=== PATIENT | female | born 1980 | race Caucasian/White ===

== ENCOUNTER → 2018-01-11 | Outpatient (CLI) | payer OTHER | END | disposition home or self-care (01) | LOC: C.LABSPEC 14:18 | PROVIDERS: ATTEND Obstetrics & Gynecology | DX: O09.523 Supervision of elderly multigravida, third trimester (principal); Z3A.00 Weeks of gestation of pregnancy not specified ==

== ENCOUNTER → 2018-01-18 | Outpatient (CLI) | payer OTHER ==
[2018-01-18 15:40] LABS: HEMATOCRIT 34.4 % (37-47); HEMOGLOBIN 11.7 g/dL (12.0-16.0)
== END | disposition home or self-care (01) ==
LOC: C.LAB1850 13:30
PROVIDERS: ATTEND Obstetrics & Gynecology
DX: O09.523 Supervision of elderly multigravida, third trimester (principal)

== ENCOUNTER → 2018-03-01 | Outpatient (CLI) | payer OTHER ==
[~2018-03-01] MED LIST: PRENTAB26 PO
== END | disposition home or self-care (01) ==
LOC: C.LABSPEC 13:31
PROVIDERS: ATTEND Obstetrics & Gynecology
DX: O09.523 Supervision of elderly multigravida, third trimester (principal)

== ENCOUNTER 2018-03-16 07:26 | Inpatient (IN) | payer OTHER ==
[~2018-03-16] VITALS: Ht 154.9 cm; Wt 75.9 kg
[2018-03-16] MEDS ORDERED: LACTATED RINGER'S 1000ML 1,000 ML IV PRN (07:43)
[2018-03-16] MEDS ORDERED: LACTATED RINGER'S 1000ML 1,000 ML IV SCH (07:43)
[2018-03-16 08:15] LABS: HEMATOCRIT 37.1 % (37-47); HEMOGLOBIN 12.6 g/dL (12.0-16.0); MEAN CELL VOLUME 86.7 fL (80-100); MEAN CORPUSCULAR HEMOGLOBIN 29.4 pg (25-34); MEAN PLATELET VOLUME 9.6 fL (7.4-10.4); PLATELET COUNT 262 K/uL (130-400); RED CELL DISTRIBUTION WIDTH SD 46.8 fL (36.4-46.3); WHITE BLOOD COUNT 14.12 K/uL (4.8-10.8)
[2018-03-16] MEDS ORDERED: BUPIVACAINE 0.25% 30 ML VIAL ONE (08:41)
[2018-03-16] MEDS ORDERED: EpHEDrine SULFATE INJ 50 MG/ML AMP ONE (08:42)
[2018-03-16] MEDS ORDERED: FENTANYL CITRATE INJ 50 MCG/1 ML 2 ML VIAL ONE (08:42)
[2018-03-16] MEDS ORDERED: FENTANYL 2MCG/ML ROPIV 1.25MG/ML 100ML BAG ONE (08:43)
[2018-03-16] MEDS ORDERED: LACTATED RINGER'S 1000ML 500 ML IV PRN ×2 (09:38→14:28)
[2018-03-16] MEDS ORDERED: NALOXONE HCL INJ 1 MG in SODIUM CHLORIDE 0.9% 1000ML 1,000 ML IV PRN (09:38)
[2018-03-16] MEDS ORDERED: EpHEDrine SULFATE INJ 50 MG/ML AMP IV PRN (09:45)
[2018-03-16] MEDS ORDERED: NALOXONE HCL INJ 0.4 MG/1 ML VIAL/CARP IV PRN (09:45)
[2018-03-16] MEDS ORDERED: NALBUPHINE HCL INJ 10 MG/ML AMP IV PRN (09:45)
[2018-03-16] MEDS ORDERED: DiphenhydrAMINE HCL 50 MG/ML VIAL IV PRN (09:45)
[2018-03-16] MEDS ORDERED: ONDANSETRON INJ 2 MG/ML 2 ML VIAL IV PRN (09:45)
[2018-03-16 10:54] VITALS: Ht 154.9 cm; Wt 75.9 kg
[2018-03-16] MEDS ORDERED: OXYTOCIN 30 UNITS/500ML NSS IV PRN ×2 (14:30→20:00)
[2018-03-16] MEDS: FENTANYL 2MCG/ML ROPIV 1.25MG/ML 100ML BAG EPI PRN ×2 (14:59→17:29)
[2018-03-16] MEDS ORDERED: OXYCODONE/ACETAMINOPHEN 5-325 TAB PO PRN (20:00)
[2018-03-16] MEDS ORDERED: LANOLIN OINT EXT PRN (20:00)
[2018-03-16] MEDS ORDERED: SUPERCREAM 0.870 % 15GM JAR EXT PRN (20:00)
[2018-03-16] MEDS ORDERED: ACETAMINOPHEN 325 MG TAB PO PRN (20:00)
[2018-03-16] MEDS ORDERED: BENZOCAINE 20% AER SPR 82.5 GM CAN EXT PRN (20:00)
[2018-03-16] MEDS ORDERED: HYDROCORTISONE ACETATE 25 MG SUPP PR PRN (20:00)
--- NOTE | 2018-03-16 20:05 | Anesthesia Procedure Note ---
Anesthesia Epidural Removal Nt Date & Time March 16, 2018 at 20:05 Vital Signs Pain Intensity: 0.0 Notes Mental Status: alert / awake / arousable, participated in evaluation Nausea / Vomiting: adequately controlled Pain: adequately controlled Airway Patency, RR, SpO2: stable & adequate BP & HR: stable & adequate Hydration State: stable & adequate Neuraxial Anesthesia: was administered Anesthetic Complications: no major complications apparent, pt satisfied with anesthetic care Epidural: removed without complications, with tip intact
[2018-03-16] MEDS: IBUPROFEN 600 MG TAB PO PRN (20:16)
[2018-03-16] MEDS: DOCUSATE SODIUM 100 MG CAP PO SCH (20:16)
[2018-03-16 21:00] VITALS: BP 120/73; PULSE 96; TEMP 36.7
--- NOTE | 2018-03-16 22:13 | Vaginal Delivery Summary ---
Vaginal Delivery Summary Predelivery diagnoses: 1. 37-year-old 001 at 38 weeks 5 days 2. Spontaneous labor 3. Advanced maternal age Postdelivery diagnoses: Same Procedure: Spontaneous vaginal delivery Complications: None Assessment a blood loss: 300 mL Findings: Viable male , Apgars 9 and 9. Weight pending, please see nursery records. Description of delivery: The patient progressed to complete with epidural anesthesia. She labored down and then began to push. She spontaneously vaginally delivered a viable male patient. Nuchal cord 1 was noted, easily reduced. The head was delivered, followed by the anterior shoulder followed by the posterior shoulder followed by the body. The baby is placed on mother's abdomen, and a spontaneous cry was heard. The umbilical cord was both wrapped around baby's body as well as the baby's foot. Cord blood was obtained, the placenta was delivered spontaneously intact with three-vessel cord. Pitocin was given. The uterus began to become firm. The uterus and vagina were swabbed of all clots and debris. The cervix vagina and perineum were inspected and a very superficial abrasion was noted at the perineum, this was hemostatic and did not require repair. Excellent hemostasis was observed, the patient and the baby tolerated the delivery well. They are recovering in the room in stable and good condition. At the conclusion of the delivery, sponge and instrument counts were correct 2.
[2018-03-17 00:05] VITALS: BP 108/63; PULSE 80; TEMP 36.8
[2018-03-17] MEDS: IBUPROFEN 600 MG TAB PO PRN ×4 (00:13→19:38)
[2018-03-17 04:30] VITALS: BP 108/65; PULSE 76; TEMP 36.8
--- NOTE | 2018-03-17 06:41 | Progress Note ---
Subjective March 17, 2018. Subjective conversation w/ patient Ambulation: ambulating normally Voiding: no voiding problems Diet Tolerance: Regular Diet Lochia: Moderate Feeding Type: Breast Feeding Pain: Abdominal cramps noted, improved with analgesia Review of Systems Constitutional: No fever, No chills Respiratory: No shortness of breath Cardiac: No chest pain Abdomen: No nausea, No vomiting Objective Vital Signs Date Time Temp Pulse Resp B/P (MAP) Pulse Ox O2 Delivery O2 Flow Rate FiO2 03/17/18 04:30 36.8 76 16 108/65 03/17/18 00:05 36.8 80 16 108/63 03/17/18 00:05 Room Air 03/16/18 21:00 Room Air 03/16/18 21:00 36.7 96 120/73 Physical Exam General Appearance: WELL-APPEARING, WD/WN, NO APPARENT DISTRESS Respiratory/Chest: lungs clear, normal breath sounds Cardiovascular: regular rate, rhythm Abdomen: soft Fundus: Firm, Non-Tender, Relation to Umbilicus (1 below) Extremities: no pedal edema, no calf tenderness Laboratory Results Last 24 Hours Test 03/16/18 08:02 03/17/18 04:44 White Blood Count 14.12 K/uL Red Blood Count 4.28 M/uL Hemoglobin 12.6 g/dL Hematocrit 37.1 % Mean Corpuscular Volume 86.7 fL Mean Corpuscular Hemoglobin 29.4 pg Mean Corpuscular Hemoglobin Concent 34.0 g/dl RDW Standard Deviation 46.8 fL RDW Coefficient of Variation 15.0 % Platelet Count 262 K/uL Mean Platelet Volume 9.6 fL Assessment and Plan Problem List Medical Problems: (1) Bronchitis Status: Acute Post- Day#: 1 Continue Routine Care: 37F s/p NVD day 1 - O+, Rubella Immune, GBS -ve - pt doing very well clinically - Vital signs reviewed and WNL - routine care - monitor and control pain with Motrin PRN - Encourage breast feeding Resident Physician Supervision Note: I was present with Dr. Escobar during the history and exam. I discussed the case with the resident and agree with the findings and plan as documented in the note. Any exceptions or clarifications are listed here: PPD#1 doing well. Routine care. Documented By: Cheyanne Knott Resident Tracking Resident Involvement: Resident Care Provided Care Provided: OB Delivery
--- NOTE | 2018-03-17 06:42 | Discharge Instructions ---
Discharge Instructions Date of Service March 17, 2018. Admission Reason for Admission: Check Labor Discharge Discharge Diagnosis / Problem: Vaginal Delivery Discharge Goals Goal(s): Routine recovery after delivery Medications Continue Dispensed Medications: supercream, dermaplast, tucks, lansinoh Activity Recommendations Activity Limitations: per Instructions/Follow-up section . Instructions / Follow-Up Instructions / Follow-Up ACTIVITY RECOMMENDATIONS: * Gradual return to full activity over the next 2-3 weeks. * No lifting - nothing heavier than baby over the next 2-3 weeks. * Do not engage in vigorous exercise, sexual activity or sports until cleared by your physician. * Do not drive or operate any motorized equipment until cleared by your physician. * You may shower/bathe daily. MEDICATIONS: For discomfort or pain, you may use Acetaminophen (Tylenol), Ibuprofen (Advil), or Naproxen (Aleve) following the package directions. For constipation you may use Colace following the package directions. BREAST CARE: If you are not breast feeding: * Wear a supportive bra 24 hours a day for one to two weeks. * Avoid stimulating your breasts and nipples as much as possible during the first few weeks after delivery. * When taking a shower, have the warm water hit your back, not breasts. * When your breasts feel full, apply ice packs. Usually three to four times a day helps ease the discomfort. * Take a mild pain medication (Tylenol / Motrin) when you are uncomfortable. If breast feeding: * Use breast milk to lubricate nipples. Lansinoh cream may be used for sore nipples. You do not need to remove cream prior to breast feeding. If using a different brand of cream, check the label for directions regarding removal of cream prior to nursing. * Wear a supportive bra. * If having problems with breasts or breast feeding, call a golf tournament consultant or your health care provider. EPISIOTOMY CARE: After delivery, if you have an episiotomy (stitches), the following steps will ease discomfort and aid healing. * For the first 24 hours after delivery, place ice packs next to your episiotomy to help reduce swelling. * After the first 24 hour-period, sitz baths, either portable or in the tub, are suggested. A shower with a shower arm sprayed over the episiotomy may be comforting. * Nichole care should be done after each voiding and bowel movement. Squirt warm water from a plastic bottle over the perineum (region of the body between the anus and urinary opening) and pat dry. * Use Dermoplast to ease discomfort. Shake container. [place] directly over the episiotomy. Place a Tucks on a clean sanitary pad next to your episiotomy. SPECIAL CARE INSTRUCTIONS: When you are discharged from the hospital, it is important for you to follow the instructions listed below: * During the first week at home, you should be able to care for yourself and your baby. In addition, the usual light household activities are encouraged. * Limit your activities to the way you feel. Do not try to clean the house or move furniture. Be sensible. * If you actively engage in sports and have done so up until the time of your delivery, you may resume these activities as soon as you feel able. This may take up to one month or even longer. Use good judgment. * Continue to take your vitamins for at least six weeks after the of your baby. * Your diet need not be limited unless you were on a special diet before your delivery. Breast-feeding mothers need around 2500 calories per day and at least 64-80 ounces of fluid per day (8 to 10 glasses). * You should eat foods from the four major food groups. Crash diets or fad diets are to be avoided. Eating lean meats, fresh fruits and vegetables, low-fat dairy products, high fiber foods and a regular exercise program, will help you get back to your pre- weight without putting your health at risk. * Constipation is sometimes a problem after delivery. Take a mild laxative as needed. If breast feeding, Milk of Magnesia is acceptable to use. You may use a suppository or Fleets enema if no episiotomy. * A daily shower or tub bath is suggested. Be sure to thoroughly and gently dry the perineum. * A bloody vaginal discharge will usually continue until around four weeks post . A small amount of bleeding may continue for as long as six weeks. Vaginal discharge changes from the bright red bleeding after delivery to pink then brownish and finally yellowish-pink before becoming white and disappearing. * Bleeding may increase with activity. Your first period may come in 4-8 weeks. If you are breast feeding, your period may be delayed even longer. * [place] (sex) can begin whenever both you and your partner feel comfortable and do not have any form of genital infection. It is recommended that you wait at least six weeks for internal and external healing to occur. If you have questions, please talk to your health care practitioner. A condom should be used to prevent infection and . * Foreplay, gentle intercourse and lubrication is very important the first several times to prevent pain. A water-based lubricant such as K-Y jelly or Astroglide may be used. * If you have RH negative blood and your baby is RH positive, you will receive RHOGAM by injection prior to discharge. The nurse will give you a card to keep with you that has the date and place that you received RHOGAM after delivery. * During your care, you had a Rubella screen done to check for the presence of rubella antibodies in your blood. If your test was negative, you will receive a Rubella vaccine prior to discharge. This vaccine may cause a fever, soreness at the injection site and flu-like symptoms. If these symptoms persist, notify your health care practitioner. is not advised for one month after a Rubella vaccine. * Verbalizes understanding of car seat law as reviewed with patient nursing. * Car Seat hand-out given and reviewed with patient by nursing. * Shaken baby information reviewed with patient by nursing. Call you doctor if: * Heavy bleeding (saturating several pads an hour) or passing clots the size of your fist. * A fever >101 degrees F (38.3 degrees C) on two occasions four hours apart and /or chills. * Unusual pain in the pelvic or vaginal areas. * "Baby Blues" lasting longer than two weeks. If you have any questions or concerns, call your health care practitioner at . FOLLOW UP VISIT: * Please call the office at to schedule a 6 week examination. It is important you keep this appointment. It is important for you to make arrangements for either yearly or twice yearly check-ups thereafter. Current Hospital Diet Patient's current hospital diet: Regular OB Diet Discharge Diet Recommended Diet: Regular Diet Pending Studies Studies pending at discharge: no Medical Emergencies . Who to Call and When: Medical Emergencies: If at any time you feel your situation is an emergency, please call 911 immediately. . Non-Emergent Contact Non-Emergency issues call your: Primary Care Provider . . "Provider Documentation" section prepared by Jose Escobar. .
[2018-03-17 07:24] LABS: HEMATOCRIT 32.1 % (37-47); HEMOGLOBIN 10.9 g/dL (12.0-16.0)
[2018-03-17 08:15] VITALS: BP 113/65; PULSE 73; TEMP 36.7
[2018-03-17] MEDS: DOCUSATE SODIUM 100 MG CAP PO SCH ×2 (10:27→19:42)
[2018-03-17 11:00] VITALS: BP 113/70; PULSE 73; TEMP 36.8
[2018-03-17 15:25] VITALS: BP 111/66; PULSE 86; TEMP 36.9
[2018-03-17] MEDS ORDERED: BISACODYL 5 MG TABEC PO SCH (20:00)
[2018-03-17 23:40] VITALS: BP 107/63; PULSE 71; TEMP 36.8; O2SAT 98
--- NOTE | 2018-03-18 06:32 | Progress Note ---
Subjective March 18, 2018. Subjective conversation w/ patient Ambulation: ambulating normally Voiding: no voiding problems Diet Tolerance: Regular Diet Lochia: Small Feeding Type: Breast Feeding Pain: Mild cramping with movement. Improved with analgesia Review of Systems Constitutional: No fever, No chills Respiratory: No shortness of breath Cardiac: No chest pain Abdomen: No nausea, No vomiting Objective Vital Signs Date Time Temp Pulse Resp B/P (MAP) Pulse Ox O2 Delivery O2 Flow Rate FiO2 03/17/18 23:40 36.8 71 16 107/63 03/17/18 23:40 98 Room Air 03/17/18 15:25 Room Air 03/17/18 15:25 36.9 86 18 111/66 03/17/18 11:00 36.8 73 16 113/70 03/17/18 08:15 36.7 73 18 113/65 03/17/18 08:15 Room Air Physical Exam General Appearance: WELL-APPEARING, WD/WN, NO APPARENT DISTRESS Respiratory/Chest: lungs clear, normal breath sounds Cardiovascular: regular rate, rhythm Abdomen: soft Fundus: Firm, Non-Tender, Relation to Umbilicus (at u) Extremities: no pedal edema, no calf tenderness Laboratory Results Last 24 Hours Test 03/17/18 07:15 Hemoglobin 10.9 g/dL Hematocrit 32.1 % Assessment and Plan Problem List Medical Problems: (1) Bronchitis Status: Acute Post- Day#: 2 Continue Routine Care: 37F s/p NVD day 2 - O+, Rubella Immune, GBS -ve - pt doing very well clinically - Vital signs reviewed and WNL - routine care - monitor and control pain with Motrin PRN - Encourage breast feeding - pt ready for d/c today, d/c instructions reviewed. f/u in 6 weeks in office Resident Physician Supervision Note: I interviewed and examined the patient. Discussed with Dr. Escobar and agree with findings and plan as documented in the note. Any exceptions or clarifications are listed here: Doing well. Plan d/c. Instructions given. Documented By: Tricia Lund Resident Tracking Resident Involvement: Resident Care Provided Care Provided: OB Delivery
[2018-03-18] MEDS: DOCUSATE SODIUM 100 MG CAP PO SCH (08:00)
[2018-03-18 08:30] VITALS: BP 124/79; PULSE 76; TEMP 36.7
[2018-03-18] MEDS: IBUPROFEN 600 MG TAB PO PRN (12:05)
[2018-03-18 14:10] VITALS: BP_DIAS 79; PULSE 76; TEMP 36.7
== END 2018-03-18 14:10 | disposition home or self-care (01) | DRG 775 ==
LOC: C.LD 07:26 → C.OPB 07:26 → C.LD 07:50 → C.OBG 20:57 → EDSTATUS 03-25 07:24
PROVIDERS: ADMIT Obstetrics & Gynecology; ATTEND Obstetrics & Gynecology
PROC: 10E0XZZ Delivery of Products of Conception, External Approach (ICD-10-PCS; principal; 2018-03-16)
DX: O99.334 Smoking (tobacco) complicating childbirth (principal); O09.523 Supervision of elderly multigravida, third trimester; O69.81X0 Labor and delivery complicated by cord around neck, without compression, not applicable or unspecified; Z3A.38 38 weeks gestation of pregnancy; Z37.0 Single live birth; F17.200 Nicotine dependence, unspecified, uncomplicated

== ENCOUNTER 2019-11-28 16:39 | Inpatient (IN) ==
[2019-11-28] MEDS ORDERED: OXYTOCIN 30 UNITS/500 ML BAG IV PRN ×3 (17:35→21:49)
--- NOTE | 2019-11-28 17:39 | History & Physical Report ---
Date of Service November 28, 2019 Assessment & Plan (1) Supervision of elderly multigravida: Admit to L&D. Labs, IV access, FHT/Kieler. She eventually would like an epidural. She is ok to ambulate. Anticipate . History of Present Illness Chief Complaint: contractions Primary Care Provider: NO PCP 38yo @ 40 0/7 presents with contractions. No vaginal bleeding, leaking of fluid. + movement. Membranes stripped in office yesterday. complicated by advanced maternal age. Allergies Allergy/AdvReac Type Severity Reaction Status Date / Time No Known Allergies Allergy Unknown Verified 11/28/19 16:48 Home Medications Home Medications Medication Instructions Recorded Confirmed Type prenat.vits,marco a,udx-gogf-qcvgx 1 tab PO DAILY 07/13/19 11/28/19 History Patient History Social History (Updated 06/05/19 @ 11:07 by Jerica Rosa) Preferred Language: Mongolian Communication Ability: Effective Beliefs That Will Affect Care: None marital status: Single Current Living Situation: Significant Other Other Information That Helps Us Care for You: No Feels Safe at Home: Yes Safety Concerns: Feels Safe At This Time Smoking Status: Current every day smoker Tobacco Type: cigarettes ; Cigarettes Per Day: 10 ; Tobacco Cessation Education Requested by Patient: No Hx Alcohol Use: No Hx Substance Use: No Review of Systems All systems reviewed & are unremarkable except as noted in HPI & below Physical Exam Physical Exam: FHT Cat 1 Kieler Q 8 minutes SVE: 4/100/-1 (was 2cm in office yesterday) Constitutional: WD/WN, vitals as above Respiratory: normal respiratory effort, lungs clear to auscultation no respiratory distress Cardiovascular: Rate/Rhythm: regular rate and regular rhythm Gastrointestinal (Abdomen): Inspection/Auscultation: abdomen normal to inspection Percussion/Palpation: abdomen soft; abdomen nontender Gravid. No s/s chorio or abruption. Skin: no rashes, warm and dry Psychiatric: A+Ox3, euthymic affect Results & Data Vital Signs (Past 12 Hours) Vital Signs Temp Resp 11/28/19 17:03 37.0 C 18 Coding Level of Care Code None Diagnoses Supervision of elderly multigravida O09.529
[2019-11-28 17:57] LABS: Hemoglobin 12.5 g/dL (12.0-16.0); Mean Corpuscular Hemoglobin 30.4 pg (25-34); Mean Platelet Volume 10.2 fL (7.4-10.4); Platelet Count 239 K/uL (130-400); RDW Coefficient of Variation 14.8 % (11.5-14.5); RDW Standard Deviation 48.6 fL (36.4-46.3); Red Blood Count 4.11 M/uL (4.2-5.4)
[2019-11-28] MEDS: LACTATED RINGER'S 1,000 ML IV PRN ×2 (18:10→19:15)
[2019-11-28] MEDS ORDERED: BUPIVACAINE 0.25% 30 ML VIAL ONE (18:24)
[2019-11-28] MEDS ORDERED: ePHEDrine sulfate 50 MG/ML AMP ONE (18:24)
[2019-11-28] MEDS ORDERED: fentaNYL citrate 100 MCG/2 ML VIAL ONE (18:24)
[2019-11-28] MEDS ORDERED: fentaNYL 2MCG/ML ROPIV 1.25MG/ML 100 ML BAG EPI ONE (18:25)
--- NOTE | 2019-11-28 18:42 | Anesthesiology Consultation ---
Date of Service November 28, 2019 Assessment & Plan Chart Review Chart Review: Acceptable Risk for Surgery, Patient NOT seen in Pre Admission Testing and Acceptable Risk for Labor Epidural Consults Requested none ASA ASA2 Proposed Anesthesia Anesthesia Type: Labor Epidural Risk / Benefits Reviewed With: PT / POA / Parent / Guardian, Accepts Plan and I nformed Consent Obtained History Height/Weight Height: 5 ft 1.5 in Weight: 78.018 kg Allergies Allergy/AdvReac Type Severity Reaction Status Date / Time No Known Allergies Allergy Unknown Verified 11/28/19 16:48 Medications Home Medications Medication Instructions Recorded Confirmed Last Taken prenat.vits,marco a,jhy-jsyk-vvuga 1 tab PO DAILY 07/13/19 11/28/19 Unknown Active Medications Generic Name Dose Route Start Last Admin Trade Name Freq PRN Reason Stop Dose Admin Lactated Ringer's 1,000 mls @ 125 mls/hr 11/28/19 17:35 11/28/19 18:10 Lr IV 11/30/19 17:34 999 mls/hr .Q8H PRN Administration L&D Protocol Protocol NPO Date Last Intake of Fluids: 11/28/19 Time Last Intake of Fluids: 17:00 Date Last Intake of Solids: 11/28/19 Time Last Intake of Solids: 13:00 Past Medical History Medical History Acute bronchitis (Resolved) Chicken pox IUD complication Exercise / Class Metabolic Activity II 4-5 Yardwork/Stairs/Walk up hill Past Family History Family History Father Hypertension Past Surgical History Surgical History History of oral surgery Past Anesthesia History No Hx of Anesthesia Complications and No Family Hx of Anesthesia Complications History of PONV No Hx of PONV and No Hx of Motion Sickness Social History Smoking Status: Current every day smoker tobacco type: cigarettes Smoking cigarettes per day: 10 Hx Alcohol Use: No Hx Substance Use: No Physical Exam Vital Signs Last Vital Signs Temp 37.0 C 11/28/19 17:03 Pulse 90 11/28/19 18:38 Resp 18 11/28/19 17:03 BP 137/57 L 01/28/20 18:36 Pulse Ox 100 11/28/19 18:38 Constitutional + obese ENMT Mouth: + small oral opening; no dentition abnormality Thyromental Distance: < 3.5 Finger Breadths Mallampati Class: II Neck normal visual inspection and trachea midline; neck extension not limited Respiratory normal respiratory effort Auscultation: lungs clear to auscultation bilaterally Cardiovascular Rate/Rhythm: regular rate and regular rhythm Heart Sounds: no murmur Musculoskeletal Spine: lumbar spine normal to inspection; normal cervical ROM Neurologic moves all extremities Motor/Sensory: no sensory deficit Psychiatric Orientation: alert and oriented x 3 Testing Laboratory Results 11/28/19 17:44
[2019-11-28 18:52] LABS: Mean Corpuscular Hgb Conc 33.8 g/dL (32-36)
[2019-11-28] MEDS ORDERED: fentaNYL 2MCG/ML ROPIV 1.25MG/ML 100 ML BAG EPI PRN (19:09)
[2019-11-28] MEDS ORDERED: ePHEDrine sulfate 50 MG/ML AMP IV PRN (19:09)
[2019-11-28] MEDS ORDERED: PROMETHAZINE HCL 25 MG in SODIUM CHLORIDE 0.9% 50 ML IV PRN (19:09)
[2019-11-28] MEDS ORDERED: ONDANSETRON INJ 2 MG/ML 2 ML VIAL IV PRN (19:09)
[2019-11-28] MEDS ORDERED: DiphenhydrAMINE HCL 50 MG/ML VIAL IV PRN (19:09)
[2019-11-28] MEDS ORDERED: NALBUPHINE HCL INJ 10 MG/ML AMP IV PRN (19:09)
[2019-11-28] MEDS ORDERED: NALOXONE HCL 0.4 MG/1 ML VIAL/CARP IV PRN (19:09)
[2019-11-28] MEDS ORDERED: NALOXONE HCL 1 MG in SODIUM CHLORIDE 0.9% 1000ML 1,000 ML IV PRN (19:09)
--- NOTE | 2019-11-28 20:46 | Obstetrical Progress Note ---
Date of Service November 28, 2019 Subjective Comfortable with epidural. SVE 8/100/0, bulging membranes AROM for clear fluid. FHT 150s, mod zeenat. +accels. Rare late decels, rare variable decels. Anticipate . Results & Data Vital Signs (Past 12 Hours) Vital Signs Temp Pulse Resp BP Pulse Ox 11/28/19 20:42 93 H 94 11/28/19 20:38 89 95 11/28/19 20:35 76 87 L 11/28/19 20:33 78 100 11/28/19 20:28 76 92 11/28/19 20:25 74 88 L 11/28/19 20:23 78 96 11/28/19 20:20 73 108/54 L 11/28/19 20:18 72 100 11/28/19 20:13 70 100 11/28/19 20:08 79 98 11/28/19 20:05 70 99/54 L 92 11/28/19 20:03 76 100 11/28/19 19:58 71 100 11/28/19 19:53 73 100 11/28/19 19:51 71 96/52 L 11/28/19 19:48 73 99 11/28/19 19:43 74 99 11/28/19 19:38 78 100 11/28/19 19:37 78 105/51 L 11/28/19 19:36 88 90 11/28/19 19:33 93 H 100 11/28/19 19:28 90 94 11/28/19 19:23 84 99 11/28/19 19:19 100 H 103/59 L 11/28/19 19:18 100 H 98 11/28/19 19:17 88 101/55 L 11/28/19 19:16 36.4 C L 18 11/28/19 19:15 36.4 C L 82 18 107/50 L 11/28/19 19:13 96 H 96 11/28/19 19:10 77 90/46 L 11/28/19 19:08 83 96 11/28/19 19:06 97 H 87 L 11/28/19 19:03 84 111/53 L 97 11/28/19 19:01 88 115/56 L 11/28/19 18:59 85 120/59 L 90 11/28/19 18:58 87 98 11/28/19 18:53 92 H 100 01/28/20 18:48 95 H 100 11/28/19 18:43 95 H 100 11/28/19 18:39 90 94 11/28/19 18:38 90 100 11/28/19 18:36 92 H 137/57 L 11/28/19 17:03 37.0 C 18 PG Care Time/CCT Total # of Minutes Spent Total Time Spent with Patient: Total time spent is greater than 50% in coordination of care (as documented) at patient's floor/unit and/or counseling patient: Coding Level of Care Code None
--- NOTE | 2019-11-28 21:33 | Anesthesia Procedure Note ---
Date of Service November 28, 2019 Anesthesia Post Epidural Note Vital Signs Vital Signs: Temp Pulse Resp BP Pulse Ox 36.6 C 96 H 18 105/52 L 97 11/28/19 20:40 11/28/19 21:27 11/28/19 20:40 11/28/19 21:27 11/28/19 21:13 Notes Mental Status: alert / awake / arousable Nausea / Vomiting: adequately controlled Pain: adequately controlled Airway Patency, RR, SpO2: stable & adequate BP & HR: stable & adequate Hydration State: stable & adequate Neuraxial Anesthesia: was administered and sensory block is resolving Anesthetic Complications: no major complications apparent Epidural: Removed without complications and With tip intact
[2019-11-28] MEDS ORDERED: HYDROCORTISONE ACETATE 25 MG SUPP PR PRN (21:49)
[2019-11-28] MEDS ORDERED: OXYCODONE/ACETAMINOPHEN 5mg/325mg TAB PO PRN (21:49)
[2019-11-28] MEDS ORDERED: bisacodyL 10 MG SUPP PR PRN (21:49)
[2019-11-28] MEDS ORDERED: BENZOCAINE 20% AER SPR 82.5 GM CAN EXT PRN (21:49)
[2019-11-28] MEDS ORDERED: DIPHTHERIA/TETANUS/PERTUSSIS 0.5 ML SYR/VIAL IM ONE (21:49)
[2019-11-28] MEDS ORDERED: SUPERCREAM 0.870% 15 GM JAR EXT PRN (21:49)
[2019-11-28] MEDS: IBUPROFEN 600 MG TAB PO PRN (22:16)
[2019-11-28 22:22] LABS: Base Excess Cord Arterial Bld -0.7 mEq/L (-9-1.8); Base Excess Cord Venous Blood -0.6 mEq/L (-7.7-1.9); CO2 Cord Arterial Blood 53 mmHg (39.1-73.5); Cord Venous Blood HCO3 25 mmol/L (18.4-26.8); Cord Venous Blood PCO2 44 mmHg (30.4-57.2); Cord Venous Blood PO2 24 mmHg (14.1-43.3); Cord Venous Blood pH 7.37 (7.20-7.44); HCO3 Cord Arterial Blood 26 mmol/L (19.7-28.5); PO2 Cord Arterial Blood 18 mmHg (4.1-31.7); pH Cord Arterial Blood 7.32 (7.1-7.38)
[2019-11-28 22:23] LABS: O2 Saturation Cord Venous Bld < 60.0 % (<68); Oxygen Sat Cord Arterial Blood < 60.0 % (<60)
--- NOTE | 2019-11-28 22:49 | Delivery Summary ---
Vaginal Delivery Summary Date of Service November 28, 2019 Vaginal Delivery Summary Vaginal Delivery Summary: Pre-delivery diagnoses: 38yo @ 40 0/7, spontaneous labor, advanced maternal age Post-delivery diagnoses: same + shoulder dystocia (mild) Procedure: spontaneous vaginal delivery Surgeon: Cheyanne Knott DO Complications: mild shoulder dystocia Findings: Viable male . Apgars: 8/9. Weight pending, please see nursery records. Estimated blood loss: 200ml Description of delivery: The patient progressed to complete with epidural anesthesia. She then began to push. She spontaneously vaginally delivered a viable from the cephalic presentation, pushing with 2 contractions. The head delivered in direct occiput anterior position. No nuchal cord. Upon delivery of the head, the fetus restituted to GINI, and turtle sign indicated shoulder dystocia. The anterior shoulder was not delivered immediately, and because of the head delivery of OA, I attempted to rotate shoulders using clockwise pressure on posterior aspect of 's posterior shoulder. Mother was then placed into McRobert's position and the anterior shoulder delivered, followed by the posterior shoulder, followed by the body. It took slightly less than 1 minute between delivery of head and shoulders. The baby was placed on mother's abdomen and the cord was doubly clamped and cut, with the infant handed off immediately to the waiting pediatrics team. Spontaneous cry was heard. A segment was retained for cord gases. Cord blood was obtained. The placenta was delivered spontaneously intact with a 3-vessel cord. The uterus and vagina were swept of clots and debris. IV pitocin was given. The uterus became firm. The cervix, vagina, and perineum were inspected and no lacerations were noted. Excellent hemostasis was observed. The mother and baby are recovering in stable and good condition in the room. Sponge and instrument counts were correct x 2. Cheyanne Knott DO [facility] Vaginal Delivery Charge Vaginal Delivery Codes: 72754 global code for the antepartum, delivery, and post-
[2019-11-29] MEDS: ACETAMINOPHEN 325 MG TAB PO PRN ×2 (00:42→15:35)
[2019-11-29] MEDS ORDERED: DOCUSATE SODIUM 100 MG CAP ONE (04:00)
[2019-11-29] MEDS: DOCUSATE SODIUM 100 MG CAP PO SCH ×2 (04:01→21:09)
[2019-11-29] MEDS: IBUPROFEN 600 MG TAB PO PRN ×4 (04:02→17:40)
[2019-11-29 06:23] LABS: Hematocrit (blood only) 32.3 % (37-47); Hemoglobin 10.6 g/dL (12.0-16.0)
--- NOTE | 2019-11-29 06:36 | Obstetrical Progress Note ---
Date of Service November 29, 2019 Assessment & Plan (1) Status post vaginal delivery: Kristel is a 38 yo on PPD 1 after at 4ow. - GBS-, Blood Type O+, Rubella immune -Vitals reviewed and WNL -Hemoglobin reviewed: 12.5 on admission, down to 10.6 post -patient is doing clinically well Recovering normally - After discharge will have [address] Knott. Supervising Physician Co-Signing Physician Notes Resident Physician Supervision Note: I was present with Dr. Bianchi during the history and exam. I discussed the case with the resident and agree with the findings and plan as documented in the note. Any exceptions or clarifications are listed here: PPD#1, doing well. No concerns. Reviewed events of delivery - discussed the shoulder dystocia. She is aware of baby's clavicular fracture, feels like baby is moving all limbs well. Goals for hydration and ambulation today. Plan for DC home tomorrow. Documented By: Cheyanne Knott, DO Subjective Ambulation: ambulating normally Voiding: no voiding problems Passing Gas:: Yes Diet Tolerance:: regular diet Lochia:: Small Feeding Type:: breast feeding Review of Systems Constitutional: no fever, no chills and no sweats Eyes: no worsening vision Respiratory: no cough and no dyspnea Cardiovascular: no chest pain, no palpitations, no edema and no calf pain Gastrointestinal: no nausea and no vomiting Genitourinary: no dysuria and no urinary frequency Neurologic: no headache(s) Physical Exam Constitutional: WD/WN, vitals as above no acute distress Respiratory: normal respiratory effort, lungs clear to auscultation does not use accessory muscles Auscultation: no crackles, no rales, no rhonchi, no wheezes and no pleural rub Cardiovascular: Rate/Rhythm: regular rate and regular rhythm Heart Sounds: normal S1 and normal S2; no gallop, no murmur and no cardiac rub Extremities: no calf tenderness and no pedal edema Gastrointestinal (Abdomen): Inspection/Auscultation: normal bowel sounds; abdomen not distended Percussion/Palpation: abdomen soft Genitourinary: Uterus: fundus firm, palpable 1 cm below the umbilicus Results & Data Vital Signs (Past 12 Hours) Vital Signs Temp Pulse Pulse Resp BP BP Pulse Ox 11/29/19 04:07 36.5 C 74 16 105/64 96 11/29/19 00:00 36.7 C 84 18 114/69 97 11/28/19 23:15 77 18 119/57 L 11/28/19 22:58 86 114/56 L 11/28/19 22:38 91 H 129/62 11/28/19 22:17 88 118/59 L 11/28/19 22:07 78 113/56 L 11/28/19 21:57 85 114/58 L 11/28/19 21:47 95 H 141/66 H 11/28/19 21:37 89 144/64 H 11/28/19 21:27 96 H 105/52 L 11/28/19 21:17 36.6 C 92 H 18 111/56 L 11/28/19 21:13 93 H 97 11/28/19 21:08 80 98 11/28/19 21:05 90 122/56 L 11/28/19 21:03 105 H 100 11/28/19 21:00 127 H 93 11/28/19 20:58 94 H 99 11/28/19 20:54 81 94 11/28/19 20:53 77 100 11/28/19 20:50 65 115/58 L 11/28/19 20:49 72 90 11/28/19 20:48 74 100 11/28/19 20:44 81 113/61 11/28/19 20:43 86 73 L 11/28/19 20:42 93 H 94 11/28/19 20:40 36.6 C 18 11/28/19 20:38 89 95 11/28/19 20:35 76 87 L 11/28/19 20:33 78 100 11/28/19 20:30 18 11/28/19 20:28 76 92 11/28/19 20:25 74 88 L 11/28/19 20:23 78 96 11/28/19 20:20 73 108/54 L 11/28/19 20:18 72 100 11/28/19 20:13 70 100 11/28/19 20:08 79 98 11/28/19 20:05 70 99/54 L 92 11/28/19 20:03 76 100 11/28/19 20:00 18 11/28/19 19:58 71 100 11/28/19 19:53 73 100 11/28/19 19:51 71 96/52 L 11/28/19 19:48 73 99 11/28/19 19:43 74 99 11/28/19 19:38 78 100 11/28/19 19:37 78 105/51 L 11/28/19 19:36 88 90 11/28/19 19:33 93 H 100 11/28/19 19:28 90 94 11/28/19 19:23 84 99 11/28/19 19:19 100 H 103/59 L 11/28/19 19:18 100 H 98 11/28/19 19:17 88 101/55 L 11/28/19 19:16 36.4 C L 18 11/28/19 19:15 36.4 C L 82 18 107/50 L 11/28/19 19:13 96 H 96 11/28/19 19:10 77 90/46 L 11/28/19 19:08 83 96 11/28/19 19:06 97 H 87 L 11/28/19 19:03 84 111/53 L 97 11/28/19 19:01 88 115/56 L 11/28/19 18:59 85 120/59 L 90 11/28/19 18:58 87 98 11/28/19 18:53 92 H 100 11/28/19 18:48 95 H 100 11/28/19 18:43 95 H 100 11/28/19 18:39 90 94 11/28/19 18:38 90 100 11/28/19 18:36 92 H 137/57 L Resident Activity Tracking Resident Involvement: Resident Care Provided Care Provided: Adult Hospital Medicine
[2019-11-29] MEDS: PRENATAL VITAMIN 1 TAB PO SCH (08:09)
[2019-11-29] MEDS ORDERED: bisacodyL 5 MG TABEC PO SCH (20:00)
[2019-11-30] MEDS: IBUPROFEN 600 MG TAB PO PRN (00:09)
--- NOTE | 2019-11-30 06:28 | Obstetrical Progress Note ---
Date of Service November 30, 2019 Assessment & Plan (1) Status post vaginal delivery: Kristel is a 38 yo on PPD 2 after at 40w. - GBS-, Blood Type O+, Rubella immune -Vitals reviewed and WNL -Hemoglobin reviewed: 12.5 on admission, down to 10.6 post ; patient asymptomatic Recovering normally. Discharge instructions reviewed. - After discharge will have [address] Knott. Supervising Physician Co-Signing Physician Notes Resident Physician Supervision Note: I interviewed and examined the patient. Discussed with Dr. Bianchi and agree with findings and plan as documented in the note. Any exceptions or clarifications are listed here: [None] Documented By: Janette Guaman MD, FACOG Subjective Ambulation: ambulating normally Voiding: no voiding problems Passing Gas:: Yes Diet Tolerance:: regular diet Lochia:: Small Feeding Type:: breast feeding Review of Systems Constitutional: no fever, no chills and no sweats Eyes: no worsening vision Respiratory: no cough and no dyspnea Cardiovascular: no chest pain, no palpitations, no edema and no calf pain Gastrointestinal: no nausea and no vomiting Genitourinary: no dysuria and no urinary frequency Neurologic: no headache(s) Physical Exam Constitutional: WD/WN, vitals as above no acute distress Respiratory: normal respiratory effort, lungs clear to auscultation does not use accessory muscles Auscultation: no crackles, no rales, no rhonchi, no wheezes and no pleural rub Cardiovascular: Rate/Rhythm: regular rate and regular rhythm Heart Sounds: normal S1 and normal S2; no gallop, no murmur and no cardiac rub Extremities: no calf tenderness and no pedal edema Gastrointestinal (Abdomen): Inspection/Auscultation: normal bowel sounds; abdomen not distended Percussion/Palpation: abdomen soft Genitourinary: Uterus: fundus firm, palpable 2 cm below the umbilicus Results & Data Vital Signs (Past 12 Hours) Vital Signs Temp Pulse Resp BP Pulse Ox 11/30/19 00:00 36.6 C 82 18 116/62 95 11/29/19 20:50 36.6 C 84 18 101/57 L 98 Resident Activity Tracking Resident Involvement: Resident Care Provided Care Provided: Adult Hospital Medicine
[2019-11-30] MEDS: PRENATAL VITAMIN 1 TAB PO SCH (07:50)
[2019-11-30] MEDS: DOCUSATE SODIUM 100 MG CAP PO SCH (07:51)
== END 2019-11-30 11:45 | disposition home or self-care (01) | DRG 807 ==
LOC: OPB 16:39 → 4S1 16:40 → 4S2 23:45

== ENCOUNTER 2022-05-06 09:13 | Inpatient (IN) ==
[2022-05-06] MEDS ORDERED: OXYTOCIN 30 UNITS/500 ML BAG IV PRN ×2 (09:16→17:42)
[2022-05-06 09:46] LABS: Hematocrit (blood only) 38.5 % (37-47); Hemoglobin 13.1 g/dL (12.0-16.0); Mean Corpuscular Hemoglobin 30.5 pg (25-34); Mean Corpuscular Volume 89.5 fL (80-100); Mean Platelet Volume 10.7 fL (7.4-10.4); Platelet Count 299 K/uL (130-400); RDW Coefficient of Variation 14.1 % (11.5-14.5); RDW Standard Deviation 46.1 fL (36.4-46.3); White Blood Count 15.02 K/uL (4.8-10.8)
--- NOTE | 2022-05-06 09:49 | History & Physical Report ---
Date of Service May 06, 2022 Assessment & Plan (1) SROM (spontaneous rupture of membranes): Plan: 41 y/o at 37 5/7 wga presents w/ srom VSS Fetus cat 1 Labor - will manage expectantly for now, pit if no change GBS neg epidural PRN Admission and Anticipated Discharge Date Admission Date: May 06, 2022 History of Present Illness Chief Complaint: LOF Primary Care Provider: NO PCP 41 yo at 37 5/7 wga presents w/ PROM. Started having trickle around midnight and contractions around 3AM, has big gush with each contraction. +FM and some spotting since ROM PNI: AMA Hx shoulder Past DIE CUTTER Hx: G1 2002 at 38 wks G2 2017 at 38 wks G3 2019 at 40 wks - 1 min shoulder G4 current 07/2021 neg cotest denies hx STIs Allergies Allergy/AdvReac Type Severity Reaction Status Date / Time No Known Allergies Allergy Unknown Verified 05/06/22 08:19 Home Medications Medication Instructions Recorded Confirmed Type prenat.vits,marco a,ueu-gogf-wzine 1 tab PO DAILY 10/15/21 04/28/22 History Patient History Medical History Acute bronchitis Chicken pox IUD complication Surgical History History of oral surgery S/P carpal tunnel release Family History Father Hypertension Grandmother (Maternal) Breast cancer Denies family history of Ovarian cancer Prostate cancer Colorectal cancer Social History Smoking Status: Former smoker Cigarettes Per Day: 10; Hx Alcohol Use: No Hx Substance Use: No Preferred Language: Hungarian Communication Ability: Effective Beliefs That Will Affect Care: None marital status: marital status details: Charles Lemus (47) [phone] Current Living Situation: Spouse and Family Current Living Situation Comment: lives with spouse, 3 children, dog, cat- spouse changing litter current occupational status: unemployed current occupation: homemaker Feels Safe at Home: Yes Assistive Devices: None Physical Exam Genitourinary: OB Exam Abdomen: + vertex (confirmed by us) and + estimated weight (7-8) Manual OB Exam: + cervical dilation 2 cm, + cervical effacement 50%, + station -2 and + amniotic fluid (+amnisure) OB Exam Monitor Tracing: + external FHT monitor used, + external uterine monitor used (irreg ctx) and + category I (135/mod/+accel/-decel) Results & Data ([facility]) Vital Signs (Past 12 Hours) Vital Signs Pulse BP 05/06/22 09:19 75 127/60 Laboratory Results OB Labs: Blood Type O Positive 10/20/21 Antibody Screen NEGATIVE 10/20/21 Hemoglobin 12.5 g/dL (12.0-16.0) 03/09/22 Hematocrit 36.3 % (37-47) L 03/09/22 Mean Corpuscular Volume 94.5 fL (80-100) 10/20/21 Platelet Count 301 K/uL (130-400) 10/20/21 Rubella IgG Antibody Immune (Immune) 10/20/21 Rapid Plasma Reagin Nonreactive (Nonreactive) 10/20/21 Hepatitis B Surface Antigen Neg (Neg) 10/20/21 Hepatitis C Antibody Neg (Neg) 10/20/21 HIV (1&2) Ab and P24 Ag, 4th Gener Neg (Neg) 10/20/21 Glucose 1 Hour 50 gm Load 117 mg/dl (70-130) 03/09/22 OB Optional Labs: Chlamydia trachomatis RNA NOT DETECTED (NOT DETECTED) 10/20/21 Neisseria gonorrhoeae RNA NOT DETECTED (NOT DETECTED) 10/20/21 Labs Reviewed: declines genetics--[facility] cf/sma neg--[facility] msafp declines --p GBS neg Diagnostic Findings 03/23 EFW 22%, post plac Coding Level of Care Code None Diagnoses SROM (spontaneous rupture of membranes)
[2022-05-06] MEDS: LACTATED RINGER'S 1,000 ML IV PRN ×2 (11:45→15:06)
[2022-05-06] MEDS ORDERED: ePHEDrine sulfate 50 MG/ML AMP ONE (12:00)
[2022-05-06] MEDS ORDERED: SODIUM CHLORIDE 0.9% INJ 10 ML VIAL ONE (12:00)
[2022-05-06] MEDS ORDERED: LIDOCAINE 2%/EPINEPHRINE 1:200,000 20 ML SDV ONE (12:00)
[2022-05-06] MEDS ORDERED: BUPIVACAINE 0.25% 30 ML VIAL ONE (12:00)
[2022-05-06] MEDS ORDERED: fentaNYL citrate 100 MCG/2 ML VIAL ONE (12:00)
[2022-05-06] MEDS ORDERED: fentaNYL 2MCG/ML ROPIVACAINE 1.25MG/ML 100 ML BAG EPI ONE (12:01)
[2022-05-06] MEDS ORDERED: NALOXONE HCL 1 MG in SODIUM CHLORIDE 0.9% 1000ML 1,000 ML IV PRN (12:03)
[2022-05-06] MEDS ORDERED: fentaNYL 2MCG/ML ROPIVACAINE 1.25MG/ML 100 ML BAG EPI PRN (12:03)
[2022-05-06] MEDS ORDERED: NALOXONE HCL 0.4 MG/1 ML VIAL/CARP IV PRN (12:03)
[2022-05-06] MEDS ORDERED: ePHEDrine sulfate 50 MG/ML AMP IV PRN (12:03)
[2022-05-06] MEDS ORDERED: ONDANSETRON INJ 2 MG/ML 2 ML VIAL IV PRN (12:03)
[2022-05-06] MEDS ORDERED: NALBUPHINE HCL INJ 10 MG/ML AMP IV PRN (12:03)
[2022-05-06] MEDS ORDERED: diphenhydrAMINE 50 MG/ML VIAL IV PRN (12:03)
--- NOTE | 2022-05-06 12:05 | Anesthesiology Consultation ---
Date of Service May 06, 2022 Assessment & Plan ASA ASA2 Proposed Anesthesia Anesthesia Type: Labor Epidural Risk / Benefits Reviewed With: PT / POA / Parent / Guardian, Accepts Plan and Informed Consent Obtained History Height/Weight Height: 5 ft 2 in Weight: 72.121 kg Allergies Allergy/AdvReac Type Severity Reaction Status Date / Time No Known Allergies Allergy Unknown Verified 05/06/22 08:19 Medications Active Medications Generic Name Dose Route Start Last Admin Trade Name Freq PRN Reason Stop Dose Admin Lactated Ringer's 1,000 mls @ 125 mls/hr 05/06/22 09:16 05/06/22 12:25 Lr IV 05/08/22 09:15 125 mls/hr .Q8H PRN Infusion L&D Protocol Protocol Past Medical History Medical History Acute bronchitis Chicken pox IUD complication Exercise / Class Metabolic Activity II 4-5 Yardwork/Stairs/Walk up hill Past Family History Family History Father Hypertension Grandmother (Maternal) Breast cancer Denies family history of Ovarian cancer Prostate cancer Colorectal cancer Past Surgical History Surgical History History of oral surgery S/P carpal tunnel release Past Anesthesia History No Hx of Anesthesia Complications and No Family Hx of Anesthesia Complications History of PONV No Hx of PONV and No Hx of Motion Sickness Social History Smoking Status: Current every day smoker tobacco type: cigarettes Smoking cigarettes per day: 10 Hx Alcohol Use: No Hx Substance Use: No substance use type: does not use Review of Systems denies fever/cough/ colds/ chest pain/ SOB/ GREGORIO denies GREGORIO Physical Exam Vital Signs Last Vital Signs Temp 36.7 C 05/06/22 10:11 Pulse 81 05/06/22 12:38 Resp 20 05/06/22 10:11 BP 117/58 L 05/06/22 12:38 Pulse Ox 96 05/06/22 12:37 ENMT Mouth: no TMJ abnormality and no dentition abnormality Thyromental Distance: > or= 3.5 Finger Breadths Mallampati Class: II Neck neck extension not limited Respiratory normal respiratory effort; no respiratory distress Auscultation: lungs clear to auscultation bilaterally Cardiovascular Rate/Rhythm: regular rate and regular rhythm Neurologic moves all extremities Psychiatric Orientation: alert and oriented x 3 Testing Laboratory Results 05/06/22 09:24
--- NOTE | 2022-05-06 14:25 | Labor Progress Brief Note ---
Date of Service May 06, 2022 Subjective Comfortable w/ epidural Assessment & Plan (1) SROM (spontaneous rupture of membranes): Plan: 41 y/o at 37 5/7 wga presents w/ srom VSS Fetus cat 1 Labor - Good change, continue expectant management GBS neg epidural in place Admission and Anticipated Discharge Date Admission Date: May 06, 2022 Physical Exam Genitourinary: Manual OB Exam: + cervical dilation 8 cm, + cervical effacement 90% and + station 0 OB Exam Monitor Tracing: + external FHT monitor used, + external uterine monitor used (q4-6) and + category I (125/mod/+accel/-decel) [facility]) Vital Signs (Past 12 Hours) Vital Signs Temp Pulse Resp BP Pulse Ox 05/06/22 14:19 65 100/51 L 05/06/22 14:17 66 99 05/06/22 14:12 64 98 05/06/22 14:07 59 L 100 05/06/22 14:03 60 98/56 L 05/06/22 14:02 60 98 05/06/22 13:57 63 100 05/06/22 13:52 58 L 98 05/06/22 13:48 57 L 93/50 L 05/06/22 13:47 58 L 95 05/06/22 13:42 74 100 05/06/22 13:37 69 90/54 L 100 05/06/22 13:33 61 87/52 L 05/06/22 13:32 64 95 05/06/22 13:27 68 96 05/06/22 13:22 70 97 05/06/22 13:18 98.1 F 67 20 93/53 L 05/06/22 13:17 76 96 05/06/22 13:12 73 98 05/06/22 13:07 70 96 05/06/22 13:02 90 96 05/06/22 13:01 71 111/55 L 05/06/22 12:57 85 98 05/06/22 12:56 89 102/57 L 05/06/22 12:52 86 97 05/06/22 12:51 82 103/55 L 05/06/22 12:47 86 100 05/06/22 12:45 96 H 116/58 L 05/06/22 12:42 90 97 05/06/22 12:40 86 115/54 L 05/06/22 12:38 81 117/58 L 05/06/22 12:37 79 96 05/06/22 12:36 83 108/57 L 05/06/22 12:34 82 114/57 L 05/06/22 12:32 70 112/59 L 100 05/06/22 12:30 75 116/61 05/06/22 12:28 76 135/71 05/06/22 12:27 71 100 05/06/22 12:22 78 99 05/06/22 12:17 87 99 05/06/22 12:01 98.4 F 20 05/06/22 10:11 98.1 F 20 05/06/22 09:19 98.1 F 75 20 127/60 Coding Level of Care Code None Diagnoses SROM (spontaneous rupture of membranes)
[2022-05-06] MEDS ORDERED: bisacodyL 10 MG SUPP PR PRN (17:42)
[2022-05-06] MEDS ORDERED: DIPHTHERIA/TETANUS/PERTUSSIS 0.5 ML SYR/VIAL IM ONE (17:42)
[2022-05-06] MEDS ORDERED: BENZOCAINE 20% AER SPR 82.5 GM CAN EXT PRN (17:42)
[2022-05-06] MEDS ORDERED: HYDROCORTISONE ACETATE 25 MG SUPP PR PRN (17:42)
[2022-05-06] MEDS ORDERED: ACETAMINOPHEN 325 MG TAB PO PRN (17:42)
[2022-05-06] MEDS ORDERED: IBUPROFEN 600 MG TAB PO ONE (17:44)
[2022-05-06] MEDS: IBUPROFEN 600 MG TAB PO PRN ×2 (17:46→22:12)
--- NOTE | 2022-05-06 17:46 | Delivery Summary ---
Vaginal Delivery Summary Date of Service May 06, 2022 Vaginal Delivery Summary and 2nd Degree LAC PREOPERATIVE DIAGNOSIS: 1. Single intrauterine at 37 5/7 wga 2. SROM/labor 3. History of shoulder dystocia 4. Advanced maternal age POSTOPERATIVE DIAGNOSIS: 1. Single intrauterine at 37 5/7 wga 2. SROM/labor 3. History of shoulder dystocia 4. Advanced maternal age 5. Delivered PROCEDURE: 1. Normal spontaneous vaginal delivery. SURGEON: Spring Phipps MD ANESTHESIA: Epidural. ESTIMATED BLOOD LOSS: 300 mL FLUIDS: Continuous LR. URINE OUTPUT: None. COMPLICATIONS: None. CONDITION: Stable. INDICATIONS: 41 y/o at 37 5/7 wga presented after SROM this morning. She was expectantly managed and received an epidural for pain control. She continued to progress spontaneously to complete and desired to push. FINDINGS: A viable male , weight pending with Apgars of 9 and 9 at 1 and 5 minutes respectively. SPECIMEN: Cord blood OPERATIVE REPORT: The patient progressed to 10 cm, 100% effaced and +2 station, pushed over intact perineum with anesthesia to deliver a viable male infant, weight and Apgars as above. Head of delivered in HAILE position. Tight nuchal/body cord was noted but pt delivered through before could be reduced. Body and shoulders were delivered without difficulty. was delivered to maternal abdomen and nursing staff. Delayed cord clamping was performed for 60 seconds. Cord was clamped and cut. Cord blood was obtained. Placenta delivered spontaneously intact with 3-vessel cord. IV oxytocin and fundal massage were given for excellent hemostasis. Vagina, cervix, perineum, and placenta were insp ected. A second degree laceration was noted and repaired using 3-0 vicryl. There was excellent hemostasis. Sponge and needle counts correct x2. No sponges were left behind. Mother and stable in immediate period. [facility] Vaginal Delivery Charge Vaginal Delivery Codes: 08280 global code for the antepartum, delivery, and post- Delivery Type Details: and 2nd Degree LAC
--- NOTE | 2022-05-06 18:00 | Anesthesia Procedure Note ---
Date of Service May 06, 2022 Anesthesia Post Epidural Note Vital Signs Vital Signs: Temp Pulse Resp BP Pulse Ox 36.7 C 69 18 120/63 87 L 05/06/22 15:11 05/06/22 17:57 05/06/22 15:11 05/06/22 17:56 05/06/22 17:57 Notes Mental Status: alert / awake / arousable and participated in evaluation Patient Amnestic to Procedure: Yes Nausea / Vomiting: adequately controlled Pain: adequately controlled Airway Patency, RR, SpO2: stable & adequate BP & HR: stable & adequate Hydration State: stable & adequate Anesthetic Complications: no major complications apparent and Pt Satisfied with anesthetic care Notes: tip intact
[2022-05-06] MEDS: DOCUSATE SODIUM 100 MG CAP PO SCH (20:39)
[2022-05-06] MEDS: oxyCODONE/ACETAMINOPHEN 5mg/325mg TAB PO PRN (22:12)
[2022-05-07] MEDS: IBUPROFEN 600 MG TAB PO PRN ×4 (04:19→16:43)
--- NOTE | 2022-05-07 06:58 | Obstetrical Progress Note ---
Date of Service May 07, 2022 Assessment & Plan (1) Encounter for care and examination after delivery: 41 yo PP1 from , doing well -Meeting all pp milestones -O+/rubella immune/ -f/u 6 weeks for appt, strongly desires tubal ligation so may want to schedule tubal with pp visit. She will discuss w/ and let schedulers know. Stable for d/c home today Subjective Ambulation: ambulating normally Voiding: no voiding problems Passing Gas:: Yes Diet Tolerance:: regular diet Lochia:: Small Feeding Type:: breast feeding Pain well managed with medication, much crampier than prior deliveries but percocet helping Review of Systems Denies fevers, chills, n/v, NARVAEZ, CP, SOB Physical Exam Constitutional WD/WN, vitals as above no acute distress Respiratory normal respiratory effort, lungs clear to auscultation Cardiovascular RRR, no murmur, no edema Gastrointestinal (Abdomen) Percussion/Palpation: abdomen soft; abdomen nontender fundus firm at umbilicus and NT Musculoskeletal BLE symmetric, nonerythematous, nontender Results & Data ([facility]) Vital Signs (Past 12 Hours) Vital Signs Temp Pulse Pulse Resp BP BP 05/07/22 04:00 97.9 F 60 16 104/57 L 05/07/22 00:00 98.2 F 63 18 98/62 L 05/06/22 21:00 98.1 F 51 L 18 98/56 L 05/06/22 19:26 98.1 F 59 L 18 112/55 L 05/06/22 19:11 69 112/63 05/06/22 18:57 63 108/62
[2022-05-07] MEDS: oxyCODONE/ACETAMINOPHEN 5mg/325mg TAB PO PRN ×3 (07:29→16:43)
[2022-05-07] MEDS ORDERED: FERROUS SULFATE 325 MG TAB PO SCH (08:00)
[2022-05-07] MEDS ORDERED: PRENATAL VITAMIN 1 TAB PO SCH (08:00)
[2022-05-07] MEDS: DOCUSATE SODIUM 100 MG CAP PO SCH (08:52)
[2022-05-07] MEDS ORDERED: bisacodyL 5 MG TABEC PO SCH (20:00)
== END 2022-05-07 20:15 | disposition home or self-care (01) | DRG 807 ==
LOC: 4S1 09:13 → 4E2 20:30